=== PATIENT | male | born 1985 | race Caucasian/White ===

== ENCOUNTER 2024-03-08 22:57 | Emergency (ER) | payer BC ==
[2024-03-08] MEDS ORDERED: Ketorolac 30 MG/ML SDV IM ONE (23:19)
[2024-03-08] MEDS: Ketorolac 30 MG/ML SDV IVPUSH ONE (23:51)
[2024-03-09] MEDS: Propofol 200 MG/20 ML SDV IVPUSH ONE (00:21)
== END 2024-03-09 01:22 | disposition home or self-care (01) ==
LOC: JP.ED 22:57
DX: S53.105A Unspecified dislocation of left ulnohumeral joint, initial encounter (principal); V86.55XA Driver of 3- or 4- wheeled all-terrain vehicle (ATV) injured in nontraffic accident, initial encounter; Y93.89 Activity, other specified
CPT/HCPCS: 24600; 73080; 96374; 99283; J1885; J2704

== ENCOUNTER 2024-03-09 10:52 | Day surgery (SDC) | payer BC, OTHER ==
[2024-03-09] MEDS: Lactated Ringers 1,000 ML IV SCH (11:47)
[2024-03-09] MEDS ORDERED: fentaNYL 100 MCG/2 ML SDV ONE (12:12)
[2024-03-09] MEDS ORDERED: Propofol 200 MG/20 ML SDV ONE ×2 (12:12→12:18)
[2024-03-09] MEDS: Acetaminophen/HYDROcodone 325-5 MG Tab PO ONE (13:21)
== END 2024-03-09 13:50 | disposition home or self-care (01) ==
LOC: JP.SDS 10:52
PROVIDERS: ATTEND Specialist
DX: S53.142A Lateral subluxation of left ulnohumeral joint, initial encounter (principal); V89.2XXA Person injured in unspecified motor-vehicle accident, traffic, initial encounter
CPT/HCPCS: 24605; 76000; A9270; J2704; J3010; J7120; 24600; 73080-26-LT; 73080-LT; 96374; 99283; 99283-25; J1885